=== PATIENT | female | born 1950 | race African-American/Black ===

== ENCOUNTER 2024-01-23 07:09 | Day surgery (SDC) | payer MEDICARE, BC, SELFPAY ==
[2024-01-23] VITALS (13 sets, daily range): BP systolic 132–163; BP diastolic 52–83; BMI 28.9
[2024-01-23] MEDS: LOW STRENGTH ASPIRIN 324 MG PO (08:20)
[2024-01-23] MEDS: NSS 237 ML IV (08:28)
--- NOTE | 2024-01-23 09:57 | ITS.CL.CATH ---
[employer] - Catheterization
Cardiac Catheterization
Procedure Report:
CARDIAC CATHETERIZATION REPORT
Date of Procedure: 01/23/2024
Referring: Leobardo Lewis MD
Indication: Chest pain with CAD risk factors
�
HEMODYNAMIC DATA
AO: 156/90
LV: 156/14
�
LEFT VENTRICULOGRAPHY Hyperdynamic left ventricular wall motion with EF 68%
�
CORONARY ANGIOGRAPHY
Dominance: Right
Left Main: Normal
LAD: Moderate to severe calcification with focal 20-30% mid stenosis. There is 50% ostial stenosis and a small bifurcating D2 originating from within the diseased segment of LAD
Circumflex: 30% proximal stenosis just past the takeoff of the high rising OM1. The remainder of the circumflex system has mild luminal irregularities
RCA: The RCA is dominant with moderate to severe calcification in the proximal and mid vessel. There is 20% mid RCA stenosis on an angulated segment of vessel.
�
Closure Device: None-the procedure was performed via the right radial artery. The Pierre's test was normal prior to the procedure.
�
Radiation (mGy): 245
DAP (cm2.Gy): 17.7
Fluoroscopy time: 6.2 minutes
�
CONCLUSIONS
1:�Systemic hypertension
2:�Hyperdynamic LV wall motion with EF 68%
3. Mild noncritical CAD as described
4. Continue aspirin/statin to achieve LDL <70. I have advised the patient to use her home blood pressure monitor every day and bring daily readings to all physician office visits
�
�
Copy to: Leobardo Lewis MD, Harlan Elizabeth MD ([place], [place])
�
Harlan Valentin MD, [facility], [facility]
[2024-01-23] MEDS: NSS 1000 IV (10:11)
== END 2024-01-23 12:15 | disposition home or self-care (01) ==
LOC: CATH 07:09
PROVIDERS: ATTENDING PHYSICIAN Internal Medicine Cardiovascular Disease; FAMILY PHYSICIAN Internal Medicine; OTHER PHYSICIAN Internal Medicine Cardiovascular Disease
DX: I25.10 Atherosclerotic heart disease of native coronary artery without angina pectoris (principal); I10 Essential (primary) hypertension; Z79.82 Long term (current) use of aspirin
CPT/HCPCS: 93458; C1894; Q9967